=== PATIENT | male | born 1985 | race African-American/Black ===

== ENCOUNTER 2018-04-04 13:34 | Emergency (ER) | payer SELFPAY ==
[~2018-04-04] VITALS: Ht 182.9 cm; Wt 84.0 kg
[2018-04-04] MEDS: ALBUTEROL (0.5%) 2.5MG/0.5ML NEB HHN ONE (17:49)
[2018-04-04 18:24] VITALS: BP 118/76
== END 2018-04-04 18:27 | disposition home or self-care (01) ==
LOC: ER 13:34
DX: R05 Cough (principal); R07.89 Other chest pain; F17.200 Nicotine dependence, unspecified, uncomplicated; F12.10 Cannabis abuse, uncomplicated
CPT/HCPCS: 71045; 94640; 99283; J7611